=== PATIENT | female | born 1990 | race Caucasian/White ===

== ENCOUNTER → 2019-10-26 17:24 | Outpatient (CLI) | payer OTHER, SELFPAY ==
[2019-10-26 17:57] LABS: Basophils # 0.2 K/mm3 (0-0.2); Basophils % 2.6 % (0.1-2.0); Eosinophils # 0.1 K/mm3 (0.0-0.4); Eosinophils % 2.1 % (0.1-12.0); Hematocrit 42.8 % (37.0-47.0); Hemoglobin 14.1 g/dL (12.2-16.2); Lymphocytes # 1.7 K/mm3 (0.7-4.5); Lymphocytes % 27.7 % (10-50); Mean Corpuscular HGB Conc 32.9 g/dL (31.8-35.4); Mean Corpuscular Hemoglobin 29.5 pg (27.0-31.2); Mean Corpuscular Volume 89.9 fl (81-99); Mean Platelet Volume 7.4 fl (7.4-10.4); Monocytes # 0.3 K/mm3 (0.1-1.0); Monocytes % 5.3 % (1.7-9.3); Neutrophils # 3.8 K/mm3 (1.8-7.8); Neutrophils % 62.2 % (37.0-80.0); Platelet Count 305 K/mm3 (142-424); Red Blood Count 4.76 M/mm3 (4.20-5.40); Red Cell Distribution Width 13.3 % (11.5-17.5); White Blood Count 6.1 K/mm3 (4.8-10.8)
--- NOTE | 2019-10-26 18:13 | XR_ITS ---
PROCEDURE: XR CHEST AP CLINICAL HISTORY: SHORTNESS OF BREATH COMPARISON: No exams were available for comparison FINDINGS: Borderline cardiomegaly without failure. The lungs are clear without infiltrates, suspicious nodules, or pleural effusions. No acute bony abnormalities. IMPRESSION: Borderline cardiomegaly otherwise negative Dictated by: Mark Martinez MD 10/26/2019 19:41 Electronically signed by Mark Martinez MD in [place] 10/26/2019 19:41
[2019-10-29 07:46] LABS: Covid-19 Nasal PCR Sendout Lex Not Detected
--- NOTE | 2019-10-29 12:28 | PC.NURSE ---
pt notified of negative covid -19 test at this time. 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
== END ==
PROVIDERS: PCP Family Medicine; Visit Provider Family Medicine
DX: Z03.818 Encounter for observation for suspected exposure to other biological agents ruled out (principal)
CPT/HCPCS: 36415; 71045; 85025; U0004

== ENCOUNTER 2020-08-28 10:02 | Emergency (ER) | payer OTHER, SELFPAY ==
[2020-08-28 10:16] VITALS: BP 148/99; PULSE 89; RESP 14; TEMP 36.8; O2SAT 99; BMI 40.4
--- NOTE | 2020-08-28 10:23 | XR_ITS ---
PROCEDURE: XR TIBIA FIBULA RT 2V CLINICAL INDICATION: INJURY Pain COMPARISON: No exams were available for comparison FINDINGS: No fracture or dislocation. No lytic or blastic change. There is normal mineralization. The joint spaces are well-preserved. No significant degenerative/arthritic changes. No erosive changes evident. Other findings:None. IMPRESSION: No acute findings. Dictated by: Mark Martinez MD 08/28/2020 11:16 Mark Martinez MD in [place] 08/28/2020 11:16
--- NOTE | 2020-08-28 10:23 | XR_ITS ---
PROCEDURE: XR HIP RT 2-3V W/PELVIS CLINICAL INDICATION: INJURY Pain COMPARISON: No exams were available for comparison FINDINGS: No fracture or dislocation is evident. No significant degenerative change. No lytic or blastic change. Unremarkable soft tissues. IMPRESSION: No acute findings. Dictated by: Mark Martinez MD 08/28/2020 11:15 Mark Martinez MD in [facility] 08/28/2020 11:15
--- NOTE | 2020-08-28 10:23 | XR_ITS ---
PROCEDURE: XR ANKLE RT MIN 3V CLINICAL INDICATION: INJURY Pain COMPARISON: No exams were available for comparison FINDINGS: No fracture or dislocation. No lytic or blastic change. There is normal mineralization. The joint spaces are well-preserved. No significant degenerative/arthritic changes. No erosive changes evident. Other findings:None. IMPRESSION: No acute findings. Dictated by: Mark Martinez MD 08/28/2020 11:16 Makr Martinez MD in [place] 08/28/2020 11:16
--- NOTE | 2020-08-28 10:23 | XR_ITS ---
PROCEDURE: XR KNEE RT 3V CLINICAL INDICATION: INJURY Pain COMPARISON: No exams were available for comparison FINDINGS: No fracture or dislocation. No lytic or blastic change. There is normal mineralization. The joint spaces are well-preserved. No significant degenerative/arthritic changes. No erosive changes evident. Other findings:None. IMPRESSION: No acute findings. Dictated by: Mark Martinez MD 08/28/2020 11:15 Mark Martinez MD in [place] 08/28/2020 11:15
--- NOTE | 2020-08-28 11:27 | HMH.EDUTC ---
[facility] – [place] Disposition Clinical Impression: Right leg pain, Right hip pain Fall Qualifiers: Encounter type: initial encounter Qualified Code(s): W19.XXXA - Unspecified fall, initial encounter Right knee pain Qualifiers: Chronicity: acute Qualified Code(s): M25.561 - Pain in right knee Right ankle pain Qualifiers: Chronicity: acute Qualified Code(s): M25.571 - Pain in right ankle and joints of right foot Disposition: Home, Self-Care Condition on Discharge: Good Instructions: How to Use Crutches, DI for Knee Sprain, DI for Leg Pain, How to Use a Knee Immobilizer Additional Instructions: Rest the extremity, apply ice for 15 minutes as tolerated three or four times per day, Elevate the extremity as tolerated while you are resting. Take ibuprofen for pain. I sent in a prescription to your pharmacy. Follow up with Dr. Barney (orthopedics). Sometimes there can be fractures that don't show up well on the first set of x-rays. So, you should follow up. I put in a referral but you need to call his office and schedule an appointment. Follow up with your regular doctor. GO TO THE ER FOR ANY WORSENING SYMPTOMS Prescriptions: Ibuprofen [Ibuprofen 600mg Tablet] 600 mg PO Q6HP PRN #30 tab PRN Reason: Mild Pain Transmission Status: Received by [facility] Mupirocin [Bactroban 2% Ointment 22gm tube] 1 applicatio TP TID 7 Days #1 tube Transmission Status: Received by [facility] Referrals: Priscila Esparza MD [Primary Care Provider] - Samm Barney MD [Staff Physician] - Forms: Work/School Release Time of Disposition: 11:36 Medical Decision Making - Medical Records Medical records reviewed: No: I reviewed the patient's medical records. - Jh Inquiry Pt receiving controlled substance: No Vital Signs: 08/28/20 10:16 08/28/20 11:41 Temperature 98.3 F 98 F Temperature Source Oral Pulse Rate 85 Pulse Rate [Right] 89 Respiratory Rate 14 16 Blood Pressure 144/92 H Blood Pressure [Right Arm] 148/99 H Blood Pressure Mean [Right Arm] 115 Blood Pressure Source [Right Arm] Automatic Cuff Blood Pressure Position [Right Arm] Sitting 02 Sat by Pulse Oximetry 99 Oxygen Delivery Method Room Air - Radiology Data #1 Image(s): Hip Image Reviewed: Yes I reviewed the patient's radiology image, Yes I have reviewed radiologist's interpretation Preliminary Findings: Normal/NAD, No Fracture Seen PROCEDURE: XR HIP RT 2-3V W/PELVIS CLINICAL INDICATION: INJURY Pain COMPARISON: No exams were available for comparison FINDINGS: No fracture or dislocation is evident. No significant degenerative change. No lytic or blastic change. Unremarkable soft tissues. IMPRESSION: No acute findings. Dictated by: Mark Martinez MD 08/28/2020 11:15 Mark Martinez MD in [facility] 08/28/2020 11:15 #2 Image(s): Knee Image Reviewed: Yes I reviewed the patient's radiology image, Yes I have reviewed radiologist's interpretation Preliminary Findings: Normal/NAD PROCEDURE: XR KNEE RT 3V CLINICAL INDICATION: INJURY Pain COMPARISON: No exams were available for comparison FINDINGS: No fracture or dislocation. No lytic or blastic change. There is normal mineralization. The joint spaces are well-preserved. No significant degenerative/arthritic changes. No erosive changes evident. Other findings:None. IMPRESSION: No acute findings. Dictated by: Mark Martinez MD 08/28/2020 11:15 Mark Martinez MD in [place] 08/28/2020 11:15 #3 Image(s): Ankle Image Reviewed: Yes I reviewed the patient's radiology image, Yes I have reviewed radiologist's interpretation Preliminary Findings: Normal/NAD PROCEDURE: XR ANKLE RT MIN 3V CLINICAL INDICATION: INJURY Pain COMPARISON: No exams were available for comparison FINDINGS: No fracture or dislocation. No lytic or blastic change. There is normal mineralization. The joint spaces are well-preserved. No significant de
[2020-08-28 11:41] VITALS: BP 144/92; PULSE 85; RESP 16; TEMP 36.6
== END 2020-08-28 11:53 | disposition home or self-care (01) ==
PROVIDERS: Emergency Provider Nurse Practitioner Family; PCP Family Medicine
DX: M25.561 Pain in right knee (principal); M25.571 Pain in right ankle and joints of right foot; M25.551 Pain in right hip; W17.2XXA Fall into hole, initial encounter; Y99.0 Civilian activity done for income or pay; Y92.69 Other specified industrial and construction area as the place of occurrence of the external cause
CPT/HCPCS: 29505; 73502; 73562; 73590; 73610; 99202; G0463

== ENCOUNTER → 2020-10-16 13:59 | Outpatient (CLI) | payer OTHER, SELFPAY ==
--- NOTE | 2020-10-16 13:59 | MR_ITS ---
PROCEDURE: MR KNEE RT WO CON CLINICAL INDICATION: Knee pain COMPARISON: CR XR KNEE RT 3V from 08/28/2020 TECHNIQUE: Routine multiplanar multi echo sequences are performed without gadolinium enhancement. FINDINGS: There is a small focal horizontal tear of the anterior horn of the medial meniscus. The lateral meniscus is intact. The ACL and PCL are intact. The MCL is intact. The L lateral collateral ligament complex appears intact. There is T2 and STIR hyperintensity noted on the superficial soft tissues adjacent to the iliotibial band through its entire visualized extent. The articular cartilage in the medial, lateral and patellofemoral compartments are unremarkable. The extensor mechanism is within normal limits. The popliteus tendon and the posterolateral corner structures are unremarkable. Small joint effusion is noted. Bone marrow signal intensity is within normal limits without evidence of marrow infiltrative process. Prepatellar and infrapatellar soft tissues demonstrate no significant soft tissue abnormality. IMPRESSION: Focal horizontal tear of the anterior horn of the medial meniscus. Edema with small amount of fluid noted in the super special soft tissues adjacent to the visualized iliotibial band. Iliotibial band syndrome should be considered. Small joint effusion. Dictated by: Rima Barney 10/17/2020 10:57 Rima Barney in [place] 10/17/2020 10:57
== END ==
PROVIDERS: PCP Family Medicine; Visit Provider Orthopaedic Surgery
DX: S89.91XA Unspecified injury of right lower leg, initial encounter (principal)
CPT/HCPCS: 73721

== ENCOUNTER → 2021-02-13 10:37 | Outpatient (CLI) | payer OTHER, SELFPAY ==
[2021-02-13 11:36] LABS: Chloride 105 mmol/L (98-107); Potassium 4.2 mmoL/L (3.5-5.1); Sodium 138 mmol/L (136-145)
[2021-02-13 11:38] LABS: Alanine Aminotransferase 40 U/L (12-78); Alkaline Phosphatase 78 U/L (38-126); Aspartate Amino Transferase 27 U/L (14-36); Bilirubin,Total 0.5 mg/dl (0.2-1.3); Blood Urea Nitrogen 9 mg/dl (7-17); Estimated Glomerular Filt Rate 118 ml/min (>60); GFR (African American) 143 ML/MIN (>60)
[2021-02-13 11:39] LABS: Albumin Level 3.8 g/dl (3.5-5.0); Albumin/Globulin Ratio 1.4 (1.1-1.8); Anion Gap 12.2 mEq/L (5-15); Calcium 8.8 mg/dl (8.4-10.2); Carbon Dioxide 25 mmol/L (22.0-30.0); Chol/HDL Ratio 5.4 (1-3.5); Cholesterol 188 mg/dl (140-200); Globulin 2.8 g/dL (1.3-3.2); Glucose 99 mg/dl (74-100); HDL Cholesterol 35 mg/dl (40-60); Total Protein,Serum 6.6 g/dl (6.3-8.2); Triglycerides 125 mg/dl (30-150); VLDL Cholesterol 25 mg/dL (0-40)
[2021-02-13 11:50] LABS: Direct LDL Cholesterol 131.23 mg/dL (100-129)
== END ==
PROVIDERS: Visit Provider Family Medicine
DX: I10 Essential (primary) hypertension (principal)
CPT/HCPCS: 36415; 80053; 80061

== ENCOUNTER → 2021-06-10 14:25 | Outpatient (CLI) | payer OTHER, SELFPAY ==
--- NOTE | 2021-06-10 14:30 | MM_ITS ---
PROCEDURE INFORMATION: Exam: US Left Breast, Complete MG Left Diagnostic Breast Tomosynthesis Exam date and time: 06/10/2021 2:30 PM Age: 31 years old Clinical indication: Palpable abnormality in the left breast TECHNIQUE: Imaging protocol: Complete ultrasound of all four quadrants of the Left breast and the retroareolar regions, including ultrasound of the axilla when performed. Left Diagnostic tomosynthesis and 2D mammography including computer-aided detection (CAD) when performed. Unilateral or bilateral exam. COMPARISON: No relevant prior studies available. FINDINGS: MAMMOGRAPHY: The breast tissue is composed of scattered areas of fibroglandular density. A skin marker was placed over the palpable abnormality in the left lateral breast. The spot compression views demonstrate normal overlapping fibroglandular structures. There is no stellate mass, architectural distortion or suspicious microcalcifications in either breast to suggest malignancy. No skin thickening or axillary adenopathy. ULTRASOUND: Sonographic images of the left breast including the retroareolar region, all 4 quadrants and the axilla do not demonstrate any solid or cystic masses. No architectural distortion or acoustical shadowing. Focal increased echogenicity in the immediate left retroareolar region extending to the overlying skin likely represents a small inclusion cyst or subcentimeter lipoma. No skin thickening or axillary adenopathy. IMPRESSION: Palpable abnormality in the left lateral breast corresponds both mammographically and sonographically to normal fibroglandular structures. Additional questionable palpable abnormality in the immediate left retroareolar region corresponds sonographically to echogenic tissue likely representing an inclusion cyst. There is no mammographic evidence of malignancy. Further evaluation of a palpable abnormality should be based on clinical grounds regardless of radiographic findings or lack thereof. ASSESSMENT: BI-RADS Category 2: Benign
== END ==
PROVIDERS: PCP Family Medicine; Visit Provider Family Medicine
DX: N63.20 Unspecified lump in the left breast, unspecified quadrant (principal)
CPT/HCPCS: 76641; 77062; 77066; G0279

== ENCOUNTER → 2021-06-24 12:17 | Outpatient (CLI) | payer OTHER, SELFPAY | PROVIDERS: PCP Psychiatry & Neurology Sleep Medicine; Visit Provider Nurse Practitioner | DX: U07.1 COVID-19 (principal) | CPT/HCPCS: C9803; U0003; U0005 ==

== ENCOUNTER 2021-08-31 14:38 | Emergency (ER) | payer OTHER, SELFPAY ==
[2021-08-31 15:06] VITALS: BP 140/79; PULSE 107; RESP 16; TEMP 36.8; O2SAT 99; BMI 43.4
--- NOTE | 2021-08-31 15:12 | HMH.EDUTC ---
[facility] [place] Clinical Impression: Pharyngitis Qualifiers: Pharyngitis/tonsillitis etiology: other specified organisms Qualified Code(s): J02.8 - Acute pharyngitis due to other specified organisms Sinusitis Qualifiers: Sinusitis location: unspecified location Chronicity: acute Recurrence: non-recurrent Qualified Code(s): J01.90 - Acute sinusitis, unspecified Disposition: Home, Self-Care Condition on Discharge: Good Instructions: DI for Sinusitis Additional Instructions: Drink plenty of fluids. Take tylenol or ibuprofen for pain or fever. Take the medications as directed. Follow up with your regular doctor. GO TO THE ER FOR ANY WORSENING SYMPTOMS Prescriptions: Ondansetron [Zofran 4mg ODT] 4 mg PO Q8HP PRN #12 tab PRN Reason: Nausea Transmission Status: [facility] Benzonatate [Benzonatate 100mg cap] 100 mg PO TIDP PRN #30 cap PRN Reason: Cough Transmission Status: Pending to [facility] Azithromycin [Z-Natanael 250mg Tab*] 250 mg PO UD DOSE PK #6 tab Transmission Status: Pending to [facility] Referrals: Priscila Esparza MD [Primary Care Provider] - Forms: Work/School Release Time of Disposition: 15:40 Medical Decision Making - Medical Records Medical records reviewed: No: I reviewed the patient's medical records. - Jh Inquiry Pt receiving controlled substance: No Vital Signs: 08/31/21 15:06 Temperature 98.2 F Temperature Source Oral Pulse Rate [Left] 107 H Respiratory Rate 16 Blood Pressure [Right Arm] 140/79 Blood Pressure Mean [Right Arm] 99 02 Sat by Pulse Oximetry 99 - Lab Data Lab results reviewed: Yes: I reviewed the patient's lab results. Orders (Tests/Meds): ORDERS Category Date Time Status Rapid Strep Scrn Group A [Strep Scrn Group A (Rapid)] Lab 08/31/21 15:06 Ordered Stat [facility] [place] - General Stated complaint: loss of voice, cough, congestion Time Seen by Provider: 08/31/21 15:12 Mode of Arrival: Ambulatory Source of Information: Patient Limitations: No Limitations Description of Symptoms (Recalled from Triage Doc. by RN): pt c/o a cough, hoarseness, MARTINI and nasal drainage. HEENT Symptoms (Recalled from RN notes): Yes Resp Symptoms (Recalled from RN notes): Yes Skin Symptoms (Recalled from RN notes): No MS Symptoms (Recalled from RN notes): No Functional Status (Recalled from RN notes): wnl - History of Present Illness Provider Complaint: She states that for the past 2 days she has had a sore throat, sinus congestion and a cough. - Related Data Home Medications Medication Instructions Recorded Confirmed levonorgestrel 20 mcg/24 hours (7 INTRAUTERI each 02/22/19 08/19/21 yrs) 52 mg intrauterine device lisinopril 10 mg tablet 10 mg PO DAILY 01/18/20 08/19/21 Previous Rx's Medication Instructions Recorded Azithromycin [Z-Natanael 250mg Tab*] 250 mg PO UD DOSE PK #6 tab 08/31/21 Benzonatate [Benzonatate 100mg 100 mg PO TIDP PRN #30 cap 08/31/21 cap] Ondansetron [Zofran 4mg ODT] 4 mg PO Q8HP PRN #12 tab 08/31/21 Allergies Allergy/AdvReac Type Severity Reaction Status Date / Time codeine [CODEINE] Allergy Mild NA-NAUSEA/V Verified 08/19/21 14:55 OMITING - Worker's Comp Is this a Worker's Comp case?: No [facility] History - Hepatitis A Screen Drug use history?: No High risk sexual behaviors?: No History of sexually transmitted infection?: No Currently employed?: No Childcare worker?: No Do you have indoor plumbing?: Yes Do you have electricity?: Yes Attestation statement:: This patient has been screened for Hepatitis A risk factors. I have reviewed the patient's past medical history: Yes Medical History: Reports:: Hypertension Denies:: Cancer, Diabetes Mellitus Type 1, Diabetes Mellitus Type 2, Internal Pacemaker, MRSA, Seizures Other Medical History: Denies: Blood Transfusion Reaction Comment: none Laterality Cases: Bilateral: Myringotomy (Ear Tub
[2021-08-31 15:48] VITALS: BP 140/79; PULSE 107; RESP 16; TEMP 36.8
[2021-08-31 16:52] LABS: Strep Scrn Group A (Rapid) Negative (Negative)
== END 2021-08-31 15:49 | disposition home or self-care (01) ==
PROVIDERS: Emergency Provider Nurse Practitioner Family; PCP Family Medicine
DX: J01.90 Acute sinusitis, unspecified (principal); J02.8 Acute pharyngitis due to other specified organisms; I10 Essential (primary) hypertension
CPT/HCPCS: 87430; 99212; G0463

== ENCOUNTER 2022-01-11 12:34 | Emergency (ER) | payer OTHER, SELFPAY ==
[2022-01-11] VITALS (10 sets, daily range): BP systolic 101–167; BP diastolic 60–87; PULSE 77–102; RESP 16–22; TEMP 36.6–36.8; O2SAT 98–100; BMI 42.0
--- NOTE | 2022-01-11 12:34 | ECG_ITS ---
APPROVED REPORT Exam: Resting ECG HR:96 bpm ECG Measurements Heart Rate 96 AXES VT 162 P 41 QRSd 91 QRS 30 QT 347 T 25 QTc 401 Conclusion SINUS RHYTHM NORMAL ECG UNCONFIRMED REPORT Electronically signed by : Jain Norman MD 01/12/2022 09:10:17
--- NOTE | 2022-01-11 12:42 | XR_ITS ---
PROCEDURE INFORMATION: Exam: XR Chest Exam date and time: 01/11/2022 1:27 PM Age: 31 years old Clinical indication: Pain; Angina pectoris; Additional info: Chest pain TECHNIQUE: Imaging protocol: Radiologic exam of the chest. Views: 1 view. COMPARISON: CT ANGIO CHEST PE PROTOCOL 01/11/2022 1:19 PM FINDINGS: Lungs: Unremarkable. No consolidation. Pleural spaces: Unremarkable. No pleural effusion. No pneumothorax. Heart/Mediastinum: Unremarkable. No cardiomegaly. Bones/joints: Unremarkable. IMPRESSION: No acute findings.
--- NOTE | 2022-01-11 12:43 | PC.NURSE ---
IFEANYI established and sent to the lab
--- NOTE | 2022-01-11 12:51 | HMH.EDGENADL ---
ED Disposition Clinical Impression: Atypical chest pain Disposition: Home, Self-Care Condition on Discharge: Good Instructions: DI for Atypical Chest Pain Additional Instructions: Additional instructions for CHEST PAIN: See your physician as soon as possible for further evaluation. Return immediately if worsening chest pain, vomiting, shortness of breath, fever, coughing of blood. Referrals: Priscila Esparza MD [Primary Care Provider] - - Critical Care Critical Care Time: No Attestation: On 01/11/22, the high probability of a clinically significant, sudden or life threatening deterioration of the following system(s) required my full and direct attention, intervention and personal management. The time I documented below is in addition to time spent performing reported procedures but includes the following listed in this critical care notation. Medical Decision Making - Jh Inquiry Pt receiving controlled substance: No Vital Signs: 01/11/22 12:37 01/11/22 13:05 01/11/22 13:37 Temperature 98.2 F Temperature Source Oral Pulse Rate 77 84 Pulse Rate [Radial] 102 H Respiratory Rate 16 21 17 Blood Pressure 101/74 L 136/75 Blood Pressure [Right Arm] 167/76 H Blood Pressure Mean 83 85 Blood Pressure Mean [Right Arm] 106 Blood Pressure Position Blood Pressure Position [Right Arm] Sitting 02 Sat by Pulse Oximetry 98 100 98 Oxygen Delivery Method Room Air Room Air Room Air 01/11/22 14:31 01/11/22 14:32 01/11/22 14:35 Temperature Temperature Source Pulse Rate 87 77 83 Pulse Rate [Radial] Respiratory Rate 22 21 Blood Pressure 123/73 123/73 114/70 Blood Pressure [Right Arm] Blood Pressure Mean 81 79 Blood Pressure Mean [Right Arm] Blood Pressure Position Sitting Blood Pressure Position [Right Arm] 02 Sat by Pulse Oximetry 100 100 99 Oxygen Delivery Method Room Air Room Air Room Air 01/11/22 15:05 01/11/22 15:35 01/11/22 16:20 Temperature Temperature Source Pulse Rate 83 81 86 Pulse Rate [Radial] Respiratory Rate 17 16 16 Blood Pressure 109/69 L 103/60 L 103/64 L Blood Pressure [Right Arm] Blood Pressure Mean 77 72 74 Blood Pressure Mean [Right Arm] Blood Pressure Position Blood Pressure Position [Right Arm] 02 Sat by Pulse Oximetry 99 100 100 Oxygen Delivery Method Room Air Room Air Room Air - Lab Data Lab Results 01/11/22 12:40: WBC 12.1 H, RBC 4.54, Hgb 13.5, Hct 41.8, MCV 92.0, MCH 29.7, MCHC 32.3, RDW 13.1, Plt Count 341, MPV 7.7, Neut % (Auto) 69.5, Lymph % (Auto) 23.1, [place] % (Auto) 5.4, Eos % (Auto) 1.1, Baso % (Auto) 0.9, Neut # (Auto) 8.4 H, Lymph # (Auto) 2.8, [place] # (Auto) 0.7, Eos # (Auto) 0.1, Baso # (Auto) 0.1 01/11/22 12:40: Sodium 139, Potassium 3.6, Chloride 105, Carbon Dioxide 27, Anion Gap 10.6, BUN 8, Creatinine 0.60, Estimated Creat Clear 98, Estimated GFR 117, Est GFR ( Amer) 142, Glucose 85, Calcium 9.1, Total Bilirubin 0.2, AST 36, ALT 75, Alkaline Phosphatase 98, Troponin I < 0.01, Total Protein 7.6, Albumin 4.3, Globulin 3.3 H, Albumin/Globulin Ratio 1.3 01/11/22 12:40: Serum HCG, Qual Negative 01/11/22 12:40: D-Dimer 0.54 H 01/11/22 14:03: SARS-CoV-2 (PCR) Not detected, Influenza A Untype (PCR) Not detected, Influenza Type B (PCR) Not detected 01/11/22 15:50: Troponin I < 0.01 Result diagrams: 01/11/22 12:40 01/11/22 12:40 Orders (Tests/Meds): ED MEDICATIONS Discontinued Medications Generic Name Dose Route Start Last Admin Trade Name Freq PRN Reason Stop Dose Admin Iopamidol 75 ml 01/11/22 13:29 Iopamidol-370 (76%);100ml Bottle IV 01/11/22 13:30 ONCE ONE Ketorolac Tromethamine 30 mg 01/11/22 14:33 01/11/22 14:34 Ketorolac 30mg/Ml Vial IV 01/11/22 14:34 30 mg ONCE ONE Administration Sodium Chloride 50 ml 01/11/22 13:29 0.9 % Sodium Chloride 50 Ml Vial IV 08/06/22 13:30 ONCE ONE Sodium Chloride 10 ml 01/11/22 13:29 Sodium Chloride 0.9% 10ml
--- NOTE | 2022-01-11 12:53 | PC.NURSE ---
Rounded on patient asked if she needed anything. She did not call light within reach
[2022-01-11 12:55] LABS: Basophils # 0.1 K/mm3 (0-0.2); Basophils % 0.9 % (0.1-2.0); Eosinophils # 0.1 K/mm3 (0.0-0.4); Eosinophils % 1.1 % (0.1-12.0); Hematocrit 41.8 % (37.0-47.0); Hemoglobin 13.5 g/dL (12.2-16.2); Lymphocytes # 2.8 K/mm3 (0.7-4.5); Lymphocytes % 23.1 % (10-50); Mean Corpuscular HGB Conc 32.3 g/dL (31.8-35.4); Mean Corpuscular Hemoglobin 29.7 pg (27.0-31.2); Mean Platelet Volume 7.7 fl (7.4-10.4); Monocytes # 0.7 K/mm3 (0.1-1.0); Monocytes % 5.4 % (1.7-9.3); Neutrophils # 8.4 K/mm3 (1.8-7.8); Neutrophils % 69.5 % (37.0-80.0); Platelet Count 341 K/mm3 (142-424); Red Blood Count 4.54 M/mm3 (4.20-5.40); Red Cell Distribution Width 13.1 % (11.5-17.5); White Blood Count 12.1 K/mm3 (4.8-10.8)
[2022-01-11 12:58] LABS: Alanine Aminotransferase 75 U/L (12-78); Albumin Level 4.3 g/dl (3.5-5.0); Albumin/Globulin Ratio 1.3 (1.1-1.8); Alkaline Phosphatase 98 U/L (38-126); Anion Gap 10.6 mEq/L (5-15); Aspartate Amino Transferase 36 U/L (14-36); Bilirubin,Total 0.2 mg/dl (0.2-1.3); Blood Urea Nitrogen 8 mg/dl (7-17); Calcium 9.1 mg/dl (8.4-10.2); Carbon Dioxide 27 mmol/L (22.0-30.0); Chloride 105 mmol/L (98-107); Creatinine Clearance Estimated 98 mL/min (50-200); Estimated Glomerular Filt Rate 117 ml/min (>60); GFR (African American) 142 ML/MIN (>60); Globulin 3.3 g/dL (1.3-3.2); Glucose 85 mg/dl (74-100); Potassium 3.6 mmoL/L (3.5-5.1); Sodium 139 mmol/L (136-145); Total Protein,Serum 7.6 g/dl (6.3-8.2)
[2022-01-11 13:03] LABS: D-Dimer 0.54 ug/mL (0.0-0.5)
--- NOTE | 2022-01-11 13:11 | CT_ITS ---
PROCEDURE INFORMATION: Exam: CTA Chest With Contrast Exam date and time: 01/11/2022 1:19 PM Age: 31 years old Clinical indication: Angina; Additional info: Cp, d-dimer above cutoff TECHNIQUE: Imaging protocol: Computed tomographic angiography of the chest with contrast. 3D rendering (Not supervised by radiologist): MIP and/or 3D reconstructed images were created by the technologist. Radiation optimization: All CT scans at this facility use at least one of these dose optimization techniques: automated exposure control; mA and/or kV adjustment per patient size (includes targeted exams where dose is matched to clinical indication); or iterative reconstruction. Contrast material: ISOVUE; Contrast volume: 75 ml; Contrast route: INTRAVENOUS (IV); COMPARISON: CR XR CHEST AP 10/26/2019 6:28 PM FINDINGS: Pulmonary arteries: No evidence of pulmonary embolus. Aorta: Unremarkable. No aortic aneurysm. No aortic dissection. Lungs: Calcified granuloma right lung base. Mild ground-glass regions of opacification demonstrated bilaterally. Pleural spaces: Unremarkable. No pneumothorax. No pleural effusion. Heart: Unremarkable. No cardiomegaly. No pericardial effusion. Lymph nodes: Nonspecific mediastinal adenopathy measuring up to 13 mm in the subcarinal space. Diaphragm: Eventration of the right hemidiaphragm. Liver: Hepatic steatosis. Hepatomegaly. Bones/joints: Unremarkable. No acute fracture. Soft tissues: Unremarkable. IMPRESSION: 1. No evidence of pulmonary embolus. 2. No evidence of acute abnormality. 3. Mild ground-glass regions of opacification. Findings nonspecific. Findings may reflect interstitial lung disease. 4. Hepatic steatosis. Hepatomegaly.
[2022-01-11 13:12] LABS: Troponin I < 0.01 ng/ml (0.00-0.034)
[2022-01-11 13:14] LABS: HCG Qualitative, Serum Negative (Negative)
--- NOTE | 2022-01-11 14:03 | PC.NURSE ---
tech Myah to obtain COVID SWAB
[2022-01-11 14:09] LABS: Coronavirus 19, PCR Not Detected (NotDetected); Influenza A, PCR Not Detected (NotDetected); Influenza B, PCR Not Detected (NotDetected)
--- NOTE | 2022-01-11 15:04 | PC.NURSE ---
pt given pepsi and ice
--- NOTE | 2022-01-11 16:15 | PC.NURSE ---
pt updated on plan. call light within reach
--- NOTE | 2022-01-11 16:42 | PC.NURSE ---
pt up ambulatory to bathroom steady gait
[2022-01-11 16:51] LABS: Troponin I < 0.01 ng/ml (0.00-0.034)
== END 2022-01-11 19:11 | disposition home or self-care (01) ==
PROVIDERS: Emergency Provider Emergency Medicine; PCP Family Medicine
DX: R07.2 Precordial pain (principal); I20.9 Angina pectoris, unspecified; R06.02 Shortness of breath; M25.511 Pain in right shoulder; R79.1 Abnormal coagulation profile; K76.0 Fatty (change of) liver, not elsewhere classified; F17.210 Nicotine dependence, cigarettes, uncomplicated; Z88.5 Allergy status to narcotic agent; Z88.8 Allergy status to other drugs, medicaments and biological substances; Z20.822 Contact with and (suspected) exposure to COVID-19
CPT/HCPCS: 36415; 71045; 71275; 80053; 84484; 84703; 85025; 85378; 93005; 96374; 99285; C9803; U0003; U0005

== ENCOUNTER 2022-07-14 15:37 | Emergency (ER) | payer OTHER, SELFPAY ==
[2022-07-14 16:00] VITALS: BP 140/67; PULSE 102; RESP 20; TEMP 36.9; O2SAT 100; BMI 42.5
--- NOTE | 2022-07-14 16:03 | EXP.UTC ---
Discharge Plan Disposition Patient Disposition: Home, Self-Care Condition: Good Prescriptions Prescriptions: New ondansetron 4 mg Tablet,Disintegrating 4 mg PO Q8H PRN (Reason: Nausea) Qty: 20 0RF No Action lisinopril 10 mg tablet 10 mg PO DAILY omeprazole 40 mg capsule,delayed release(DR/EC) 40 mg PO DAILY Label Comments: TAKE 1 CAPSULE BY MOUTH ONCE DAILY dicyclomine 10 mg capsule 10 mg PO ONCE spironolactone 100 mg tablet 100 mg PO DAILY Lo Loestrin Fe 1 mg-10 mcg (24)/10 mcg (2) tablet 1 tab PO DAILY Referrals Follow up/Referrals: Priscila Esparza MD [Primary Care Provider] - See instructions Activity Restrictions/Add. Instructions Additional Instructions/Restrictions: Drink plenty of fluids. Take tylenol or ibuprofen for pain or fever. Take the medications as directed. Follow up with your regular doctor. GO TO THE ER FOR ANY WORSENING SYMPTOMS Clinical Impressions Clinical Impression: Gastroenteritis Stand Alone Forms Stand Alone Forms: Work/School Release Instructions Patient Instructions: DI for Viral Gastroenteritis -- Adult Discharge ED Provider: Remigio French [facility] General Stated complaint: Stomach ache, Vomitting Time Seen by Provider: 07/14/22 16:03 History of Present Illness Provider Complaint: She states that since yesterday she has had n/v/d. Her daughter currently has norovirus. She denies any abdominal pain. Related Data Home Medications Medication Instructions Recorded Confirmed lisinopril 10 mg tablet 10 mg PO DAILY . 01/18/20 07/14/22 dicyclomine 10 mg capsule 10 mg PO ONCE . 06/19/22 07/14/22 omeprazole 40 mg capsule,delayed 40 mg PO DAILY . 06/19/22 07/14/22 release norethindrone 1 mg-ethinyl 1 tab PO DAILY control 07/14/22 07/14/22 estradiol 10 mcg (24)-iron 10 mcg(2) tablet (Lo Loestrin Fe) spironolactone 100 mg tablet 100 mg PO DAILY . 07/14/22 07/14/22 Previous Rx's Medication Instructions Recorded ondansetron 4 mg disintegrating 4 mg PO Q8H PRN Nausea #20 tabs 07/14/22 tablet Allergies Allergy/AdvReac Type Severity Reaction Status Date / Time codeine [CODEINE] Allergy Mild NA-NAUSEA/V Verified 07/14/22 16:45 OMITING PFSH PFSH Disclaimer: The information contained in this section may have been updated after the patient was seen, as this information can be updated by other users. Medical History delivery delivered History of deviated nasal septum Surgical History History of cholecystectomy History of placement of ear tubes History of tonsillectomy and adenoidectomy Social History Smoking Status: Current every day smoker tobacco type: cigarettes packs per day: 1 alcohol intake: never substance use type: denies use current occupational status: employed Travel in the last 8 weeks: None household members: spouse and children housing: house current occupational exposures/hazards: No caffeine: Yes ROS Obtained: Yes All systems reviewed & no additional complaints except as documented Constitutional Constitutional: Reports chills and Denies fever(s) Eyes Eyes: Denies eye discharge ENT Ears, Nose, Mouth, and Throat: Denies sore throat Cardiovascular Cardiovascular: Denies chest pain Respiratory Respiratory: Denies chest congestion and Reports cough Gastrointestinal Gastrointestingal: Reports cramping, diarrhea, nausea and vomiting; Denies abdominal pain or constipation Musculoskeletal Musculoskeletal: Denies arthralgias Integumentary/Breasts Skin/Breast: Denies rash Neurologic Neurologic: Denies paresthesias Physical Exam General General appearance: alert and in no apparent distress Head Head exam: atraumatic and normocephalic Eye Eye exam: Present normal appearance, PER
[2022-07-14 17:00] VITALS: BP 140/67; PULSE 102; RESP 20; TEMP 36.9; O2SAT 100
== END 2022-07-14 17:11 | disposition home or self-care (01) ==
PROVIDERS: Emergency Provider Nurse Practitioner Family; PCP Family Medicine
DX: K52.9 Noninfective gastroenteritis and colitis, unspecified (principal)
CPT/HCPCS: 99212; 99213; G0463

== ENCOUNTER 2023-02-01 08:32 | Emergency (ER) | payer OTHER, SELFPAY ==
[2023-02-01 08:33] VITALS: BP 162/102; PULSE 112; RESP 20; TEMP 36.9; O2SAT 97; BMI 42.0
--- NOTE | 2023-02-01 08:48 | EXP.UTC ---
Discharge Plan Disposition Patient Disposition: Home, Self-Care Condition: Good Prescriptions Prescriptions: New azithromycin [Zithromax] 250 mg tablet 250 mg PO UD DOSE PK Qty: 6 0RF Rx Instructions: Take two (2) tablets today, then one (1) tablet days #2 thru #5 methylprednisolone 4 mg Tablets,Dose Pack 4 mg PO DIRECTED Qty: 21 0RF cimrkokdxooufii-pwjhujeis-MR [Bromfed DM] 2-30-10 mg/5 mL Syrup 5 ml PO Q6H PRN (Reason: Cough) Qty: 240 0RF No Action lisinopril 10 mg tablet 10 mg PO DAILY omeprazole 40 mg capsule,delayed release(DR/EC) 40 mg PO DAILY Patient Comments: TAKE 1 CAPSULE BY MOUTH ONCE DAILY dicyclomine 10 mg capsule 10 mg PO ONCE norethindrone ac-eth estradiol [Loestrin 06/27 ()] 1-20 mg-mcg tablet 1 tab PO DAILY Qty: 63 4RF Referrals Follow up/Referrals: Priscila Esparza MD [Primary Care Provider] - See instructions Activity Restrictions/Add. Instructions Additional Instructions/Restrictions: Drink plenty of fluids. Take tylenol or ibuprofen for pain or fever. Take the medications as directed. Follow up with your regular doctor. GO TO THE ER FOR ANY WORSENING SYMPTOMS Clinical Impressions Clinical Impression: Sinusitis, Acute viral syndrome Stand Alone Forms Stand Alone Forms: Work/School Release Instructions Patient Instructions: Sinusitis, DI for Sinusitis, Coronavirus Disease 2019 Discharge ED Provider: Remigio French [facility] [place] HPI General Stated complaint: congestion and body aches Time Seen by Provider: 02/01/23 08:47 History of Present Illness Provider Complaint: She states that for the past 3 days she has had body aches, chills, low grade fever, malaise, sore throat, sinus congestion and a cough. Related Data Home Medications Medication Instructions Recorded Confirmed lisinopril 10 mg tablet 10 mg PO DAILY . 01/18/20 11/18/22 dicyclomine 10 mg capsule 10 mg PO ONCE . 06/19/22 11/18/22 omeprazole 40 mg capsule,delayed 40 mg PO DAILY . 06/19/22 11/18/22 release Previous Rx's Medication Instructions Recorded norethindrone acetate 1 mg-ethinyl 1 tab PO DAILY #63 tabs 11/18/22 estradiol 20 mcg tablet (Loestrin) azithromycin 250 mg tablet 250 mg PO UD DOSE PK #6 tabs 02/01/23 (Zithromax) lbzqribdfpcbfhm-cwgbsgifjimmulb-QF 5 ml PO Q6H PRN Cough #240 mL 02/01/23 2 mg-30 mg-10 mg/5 mL oral syrup (Bromfed DM) methylprednisolone 4 mg tablets in 4 mg PO DIRECTED #21 tabs 02/01/23 a dose pack Allergies Allergy/AdvReac Type Severity Reaction Status Date / Time codeine [CODEINE] Allergy Mild NA-NAUSEA/V Verified 11/18/22 11:29 OMITING PFSH PFSH Disclaimer: The information contained in this section may have been updated after the patient was seen, as this information can be updated by other users. Medical History delivery delivered History of deviated nasal septum Surgical History History of cholecystectomy History of placement of ear tubes History of tonsillectomy and adenoidectomy Social History Smoking Status: Current every day smoker tobacco type: cigarettes packs per day: 1 alcohol intake: never substance use type: denies use current occupational status: employed Travel in the last 8 weeks: None household members: spouse and children housing: house current occupational exposures/hazards: No caffeine: Yes ROS Obtained: Yes All systems reviewed & no additional complaints except as documented Constitutional Constitutional: Reports poor appetite Eyes Eyes: Reports system reviewed and no additional complaints, except as documented ENT Ears, Nose, Mouth, and Throat: Reports as per HPI Cardiovascular Cardiovascular: Reports system reviewed and no additional complaints, except as documente
[2023-02-01 09:44] VITALS: BP 162/102; PULSE 112; RESP 20; TEMP 36.9; O2SAT 97
== END 2023-02-01 09:46 | disposition home or self-care (01) ==
PROVIDERS: Emergency Provider Nurse Practitioner Family; PCP Family Medicine
DX: U07.1 COVID-19 (principal); J01.90 Acute sinusitis, unspecified; R50.9 Fever, unspecified; R53.81 Other malaise; F17.210 Nicotine dependence, cigarettes, uncomplicated
CPT/HCPCS: 99212; 99214; G0463

== ENCOUNTER 2023-08-11 13:19 | Outpatient (CLI) | payer OTHER, SELFPAY ==
[2023-08-11 13:31] LABS: Adenovirus F 40/41, stool Not Detected (NotDetected); Astrovirus Not Detected (NotDetected); Campylobacter Not Detected (NotDetected); Clostridium Difficile A/B, PCR Not Detected (NotDetected); Cryptosporidium Not Detected (NotDetected); Cyclospora Cayetanesis Not Detected (NotDetected); Entamoeba histolytica Not Detected (NotDetected); Enteroaggregative E coli Not Detected (NotDetected); Enteropathogenic E coli Not Detected (NotDetected); Enterotoxigenic E coli Not Detected (NotDetected); Giardia lamblia Not Detected (NotDetected); Norovirus Not Detected (NotDetected); Plesimonas Shigalloides, PCR Not Detected (NotDetected); Rotavirus A Not Detected (NotDetected); Salmonella, PCR Not Detected (NotDetected); Sapovirus Not Detected (NotDetected); Shiga-like toxin E coli Not Detected (NotDetected); Shigella Enterovasive E coli Not Detected (NotDetected); Vibrio Cholerae Not Detected (NotDetected); Vibrio, PCR Not Detected (NotDetected); Yersinia Entercolitica, PCR Not Detected (NotDetected)
[2023-08-12 14:43] LABS: H. pylori Stool Ag, EIA Negative (Negative)
[2023-08-15 00:08] LABS: Pancreatic Elastase, Fecal >500 (>200)
== END 2023-08-11 23:59 ==
PROVIDERS: PCP Family Medicine; Visit Provider Nurse Practitioner Family
DX: K52.9 Noninfective gastroenteritis and colitis, unspecified (principal)
CPT/HCPCS: 82656; 87338; 87507

== ENCOUNTER 2023-12-05 19:20 | Emergency (ER) | payer OTHER, SELFPAY ==
[2023-12-05 19:21] VITALS: BP 161/90; PULSE 115; RESP 18; TEMP 36.6; O2SAT 97; BMI 42.0
--- NOTE | 2023-12-05 19:30 | EXP.UTC ---
Discharge Plan Disposition Patient Disposition: Home, Self-Care Condition: Good Prescriptions Prescriptions: New amoxicillin 500 mg tablet 500 mg PO TID 10 Days Qty: 30 0RF No Action lisinopril 10 mg tablet 10 mg PO DAILY omeprazole 40 mg capsule,delayed release(DR/EC) 40 mg PO DAILY Patient Comments: TAKE 1 CAPSULE BY MOUTH ONCE DAILY dicyclomine 10 mg capsule 10 mg PO ONCE norethindrone ac-eth estradiol [Microgestin 06/27 ()] 1-20 mg-mcg tablet See Rx Instructions .ROUTE .COMPLEX Qty: 63 0RF Dose Instruction: Take 1 tablet by mouth once daily Rx Instructions: Take 1 tablet by mouth once daily azithromycin [Zithromax] 250 mg tablet 250 mg PO UD DOSE PK Qty: 6 0RF Rx Instructions: Take two (2) tablets today, then one (1) tablet days #2 thru #5 methylprednisolone 4 mg Tablets,Dose Pack 4 mg PO DIRECTED Qty: 21 0RF ewimzxzdkkgtebk-xpbhqtfmh-SM [Bromfed DM] 2-30-10 mg/5 mL Syrup 5 ml PO Q6H PRN (Reason: Cough) Qty: 240 0RF Referrals Follow up/Referrals: Priscila Esparza MD [Primary Care Provider] - See instructions Activity Restrictions/Add. Instructions Additional Instructions/Restrictions: Drink plenty of fluids. Take tylenol for pain or fever. Take the medications as directed. Follow up with your regular doctor within the next 48 hours. GO TO THE ER FOR ANY WORSENING SYMPTOMS Return JUSTIN if your symptom continue or worsen. Clinical Impressions Clinical Impression: Otitis media Instructions Patient Instructions: Middle Ear Infection Discharge ED Provider: Remigio French [facility] General Stated complaint: SOA, Light-headed Time Seen by Provider: 12/05/23 19:30 History of Present Illness Provider Complaint: She states that since earlier today she has had intermittent dizziness, lightheadedness, right ear pain. Her symptoms have caused her to have anxiety. She denies any chest pain. She does say that she has had some chest tightness at times. Related Data Home Medications Medication Instructions Recorded Confirmed lisinopril 10 mg tablet 10 mg PO DAILY . 01/18/20 11/18/22 dicyclomine 10 mg capsule 10 mg PO ONCE . 06/19/22 11/18/22 omeprazole 40 mg capsule,delayed 40 mg PO DAILY . 06/19/22 11/18/22 release Previous Rx's Medication Instructions Recorded azithromycin 250 mg tablet 250 mg PO UD DOSE PK #6 tabs 02/01/23 (Zithromax) silidirvedwzuld-sdglrpmqwdknrvv-MU 5 ml PO Q6H PRN Cough #240 mL 02/01/23 2 mg-30 mg-10 mg/5 mL oral syrup (Bromfed DM) methylprednisolone 4 mg tablets in 4 mg PO DIRECTED #21 tabs 02/01/23 a dose pack norethindrone acetate 1 mg-ethinyl See Rx Instructions .Route 12/01/23 estradiol 20 mcg tablet .COMPLEX #63 tabs (Microgestin) amoxicillin 500 mg tablet 500 mg PO TID 10 days #30 tabs 12/05/23 Allergies Allergy/AdvReac Type Severity Reaction Status Date / Time codeine [CODEINE] Allergy Mild NA-NAUSEA/V Verified 11/18/22 11:29 OMITING PFSH PFSH Disclaimer: The information contained in this section may have been updated after the patient was seen, as this information can be updated by other users. Medical History delivery delivered History of deviated nasal septum Surgical History History of cholecystectomy History of placement of ear tubes History of tonsillectomy and adenoidectomy Social History Smoking Status: Current every day smoker tobacco type: cigarettes packs per day: 1 alcohol intake: never substance use type: denies use current occupational status: employed Travel in the last 8 weeks: None household members: spouse and children housing: house current occupational exposures/hazards: No caffeine: Yes ROS Obtained: Yes All systems reviewed & no additional complaints except as documented Constitutional Constitutional: Denies chills and Denies fever(s) Eyes Eyes: Denies eye discharge ENT Ears, Nose, Mouth, and Throat: Reports as per HPI, Reports dizziness, Reports otalgia and Denies sore throat Cardiovascular Cardiovascular: Denies chest pain Respiratory Respiratory: Denies shortness of breath, Denies chest congestion, Denies cough, Denies stridor and Denies wheezing Gastrointestinal Gastrointestingal: Denies nausea or vomiting Musculoskeletal Musculoskeletal: Reports system reviewed and no additional complaints, except as documented and Denies arthralgias Integumentary/Breasts Skin/Breast: Denies rash Neurologic Neurologic: Reports dizziness and Denies paresthesias Allergic/Immunologic Allergic/Immunologic: Denies wheezing Physical Exam General General appearance: alert and in no apparent distress Head Head exam: atraumatic, normocephalic and normal inspection Eye Eye exam: Present normal appearance, PERRL and EOMI ENT ENT exam: Present normal exam, normal oropharynx, mucous membranes moist, TM's normal bilaterally and normal external ear exam Neck Neck exam: Present normal inspection, full ROM and trachea midline; Absent meningismus or lymphadenopathy Chest Chest inspection: Present normal inspection and symmetric chest wall rise; Absent tenderness Respiratory Respiratory exam: Present normal lung sounds bilaterally; Absent respiratory distress Cardiovascular Cardiovascular exam: Present regular rate and normal rhythm; Absent JVD Abdominal Exam Abdominal exam: Present soft and normal bowel sounds; Absent distention, tenderness or guarding Extremities Exam Extremities exam: Present normal inspection, full ROM and normal capillary refill; Absent calf tenderness Back Exam Back exam: Present normal inspection; Absent tenderness Neurological Exam Neurological exam: Present alert, oriented X3, CN II-XII intact, normal gait and reflexes normal; Absent motor sensory deficit Expanded Neurological Exam Patient oriented to: Present person, place and time Speech: Present fluid speech Cranial nerves: Normal: EOM function (II, III, IV, ), facial sensation (V), facial palsy (VII), gag reflex (IX), spinal accessory function (XI) and tongue deviation (XII) Cerebellar function: normal gait Motor strength - LUE: 5/5 Motor strength - RUE: 5/5 Motor strength - LLE: 5/5 Motor strength - RLE: 5/5 Upper motor neuron exam: Normal: eloina neglect and sensory extinction Sensory exam upper extremity: Normal: light touch and 2 point discrimination Sensory exam lower extremity: Normal: light touch and 2 point discrimination DTR: 2+: biceps (L), biceps (R), patellar (L), patellar (R), Achilles tendon (L) and Achilles tendon (R) Spinal cord function: Absent saddle anesthesia Psychiatric Psychiatric exam: Present normal affect and normal mood Skin Skin exam: Present warm, dry, intact and normal color Lymphatic Lymphatic Findings: no adenopathy Medical Decision Making Medical Records Medical records reviewed: No I reviewed the patient's medical records. Jh Inquiry Pt receiving controlled substance: No Lab Data Lab results reviewed: Yes I reviewed the patient's lab results. 12/05/23 20:11 12/05/23 20:11 Radiology Data #1: Image(s): Chest Preliminary Findings: Normal/NAD and No Infiltrates Seen Accession No. : [id number] Patient Name / ID : Charleen Rene / [id number] Exam Date : 12/05/2023 19:48:09 ( Final ) Study Comment : Sex / Age : F / 33Y Creator : STEFANY CANTU MD Dictator : Shredding Machine Operator : Cloth Baler : STEFANY CANTU MD Approver2 : Report Date : 12/05/2023 21:17:40 My Comment : PROCEDURE INFORMATION: Exam: XR Chest Exam date and time: 12/05/2023 7:48 PM Age: 33 years old Clinical indication: Cough; Additional info: Cough, congestion TECHNIQUE: Imaging protocol: Radiologic exam of the chest. Views: 2 views. COMPARISON: CR XR CHEST PORTABLE 01/11/2022 1:27 PM FINDINGS: Lungs: No evidence of acute pulmonary disease or infiltrates Pleural spaces: No large effusion or pneumothorax. Heart/Mediastinum: No evidence of mediastinal widening or cardiac silhouette enlargement; the mediastinum and heart appear within normal limits for contour and size. Bones/joints: No evidence of acute osseous abnormalities within the visualized portions of the thoracic spine and ribs. Osseous structures appear appropriate for patient age. IMPRESSION: No dense parenchymal consolidation, pleural effusion, or pneumothorax.
--- NOTE | 2023-12-05 19:46 | ECG_ITS ---
APPROVED REPORT Exam: Resting ECG HR:91 bpm ECG Measurements Heart Rate 91 AXES OR 159 P 47 QRSd 88 QRS 72 QT 351 T 60 QTc 400 Conclusion SINUS RHYTHM Electronically signed by : NARCISA ARROYO, 12/07/2023 15:01:50
--- NOTE | 2023-12-05 19:48 | XR_ITS ---
PROCEDURE INFORMATION: Exam: XR Chest Exam date and time: 12/05/2023 7:48 PM Age: 33 years old Clinical indication: Cough; Additional info: Cough, congestion TECHNIQUE: Imaging protocol: Radiologic exam of the chest. Views: 2 views. COMPARISON: CR XR CHEST PORTABLE 01/11/2022 1:27 PM FINDINGS: Lungs: No evidence of acute pulmonary disease or infiltrates Pleural spaces: No large effusion or pneumothorax. Heart/Mediastinum: No evidence of mediastinal widening or cardiac silhouette enlargement; the mediastinum and heart appear within normal limits for contour and size. Bones/joints: No evidence of acute osseous abnormalities within the visualized portions of the thoracic spine and ribs. Osseous structures appear appropriate for patient age. IMPRESSION: No dense parenchymal consolidation, pleural effusion, or pneumothorax.
[2023-12-05 19:51] VITALS: BP 151/72; BP 155/78; BP 163/90; PULSE 100; PULSE 107; PULSE 99
[2023-12-05 20:10] LABS: Apearance,Urine Clear (Clear); Bilirubin,Urine Negative (Negative); Blood, Urine Negative (Negative); Color,Urine Yellow (Yellow); Glucose,Urine (UA) Negative (Negative); Ketones,Urine Negative (Negative); Protein,Urine Negative (Negative); UTC Leukocyte Esterase,Urine Negative (Negative); UTC Nitrate,Urine Negative (Negative); Urobilinogen,Urine 0.2 EU/dl (0.2)
[2023-12-05 20:11] LABS: UTC Pregnancy Test, Urine Negative (Negative)
[2023-12-05 20:32] LABS: Basophils # 0.1 K/mm3 (0-0.2); Basophils % 0.8 % (0.1-2.0); Eosinophils # 0.1 K/mm3 (0.0-0.4); Eosinophils % 1.3 % (0.1-12.0); Hematocrit 39.8 % (37.0-47.0); Hemoglobin 12.9 g/dL (12.2-16.2); Lymphocytes # 2.4 K/mm3 (0.7-4.5); Lymphocytes % 24.5 % (10-50); Mean Corpuscular HGB Conc 32.5 g/dL (31.8-35.4); Mean Corpuscular Hemoglobin 28.4 pg (27.0-31.2); Mean Corpuscular Volume 87.3 fl (81-99); Mean Platelet Volume 7.6 fl (7.4-10.4); Monocytes # 0.4 K/mm3 (0.1-1.0); Monocytes % 4.5 % (1.7-9.3); Neutrophils # 6.6 K/mm3 (1.8-7.8); Neutrophils % 68.9 % (37.0-80.0); Platelet Count 391 K/mm3 (142-424); Red Blood Count 4.56 M/mm3 (4.20-5.40); White Blood Count 9.6 K/mm3 (4.8-10.8)
[2023-12-05 20:43] LABS: Chloride 105 mmol/L (98-107); Potassium 3.6 mmoL/L (3.5-5.1); Sodium 140 mmol/L (136-145)
[2023-12-05 20:46] LABS: Anion Gap 13.6 mEq/L (5-15); Blood Urea Nitrogen 6 mg/dl (7-17); Carbon Dioxide 25 mmol/L (22.0-30.0); Creatinine Clearance Estimated 97 mL/min (50-200); Estimated Glomerular Filt Rate 116 ml/min (>60); GFR (African American) 140 ML/MIN (>60)
[2023-12-05 20:47] LABS: Calcium 9.4 mg/dl (8.4-10.2); Glucose 107 mg/dl (74-100)
[2023-12-05 20:56] VITALS: BP 161/90; PULSE 115; RESP 18; TEMP 36.6; O2SAT 97
== END 2023-12-05 20:56 | disposition home or self-care (01) ==
PROVIDERS: Emergency Provider Nurse Practitioner Family; PCP Family Medicine
DX: H66.91 Otitis media, unspecified, right ear (principal); R07.89 Other chest pain; R42 Dizziness and giddiness; F17.210 Nicotine dependence, cigarettes, uncomplicated
CPT/HCPCS: 71046; 80048; 81003; 81025; 85025; 93005; 99212; 99214; G0463

== ENCOUNTER 2024-04-29 08:34 | Outpatient (CLI) | payer OTHER, SELFPAY ==
[2024-04-29 09:00] LABS: Basophils # 0.1 K/mm3 (0-0.2); Basophils % 0.8 % (0.1-2.0); Eosinophils # 0.1 K/mm3 (0.0-0.4); Eosinophils % 1.6 % (0.1-12.0); Hematocrit 38.1 % (37.0-47.0); Hemoglobin 12.9 g/dL (12.2-16.2); Lymphocytes # 1.5 K/mm3 (0.7-4.5); Mean Corpuscular HGB Conc 33.8 g/dL (31.8-35.4); Mean Corpuscular Hemoglobin 28.9 pg (27.0-31.2); Mean Corpuscular Volume 85.6 fl (81-99); Mean Platelet Volume 7.1 fl (7.4-10.4); Monocytes # 0.3 K/mm3 (0.1-1.0); Monocytes % 4.2 % (1.7-9.3); Neutrophils # 5.3 K/mm3 (1.8-7.8); Neutrophils % 73.4 % (37.0-80.0); Platelet Count 333 K/mm3 (142-424); Red Blood Count 4.45 M/mm3 (4.20-5.40); Red Cell Distribution Width 13.7 % (11.5-17.5); White Blood Count 7.2 K/mm3 (4.8-10.8)
[2024-04-29 09:33] LABS: Alanine Aminotransferase 18 U/L (12-78); Albumin/Globulin Ratio 1.4 (1.1-1.8); Alkaline Phosphatase 81 U/L (38-126); Anion Gap 13.4 mEq/L (5-15); Aspartate Amino Transferase 18 U/L (14-36); Bilirubin,Total 0.6 mg/dl (0.2-1.3); Blood Urea Nitrogen 9 mg/dl (7-17); Carbon Dioxide 22 mmol/L (22.0-30.0); Chloride 107 mmol/L (98-107); Chol/HDL Ratio 4.1 (1-3.5); Cholesterol 162 mg/dl (140-200); Estimated Glomerular Filt Rate 96 ml/min (>60); GFR (African American) 117 ML/MIN (>60); Globulin 2.8 g/dL (1.3-3.2); Glucose 93 mg/dl (74-100); HDL Cholesterol 40 mg/dl (40-60); Magnesium 2.1 mg/dl (1.6-2.3); Potassium 4.4 mmoL/L (3.5-5.1); Sodium 138 mmol/L (136-145); Total Protein,Serum 6.8 g/dl (6.3-8.2); Triglycerides 118 mg/dl (30-150); Uric Acid 5.5 mg/dl (2.5-6.2); VLDL Cholesterol 24 mg/dL (0-40)
[2024-04-29 09:44] LABS: C-Reactive Protein 36.6 mg/L (0-4); Direct LDL Cholesterol 115.63 mg/dL (100-129)
[2024-04-29 10:04] LABS: Thyroid Stimulating Hormone 1.73 uIU/mL (0.465-4.68)
[2024-04-29 10:23] LABS: Vitamin B12 216 pg/mL (239-931)
[2024-04-29 10:24] LABS: Erythrocyte Sedimentation Rate 86 mm/hr (0-20)
[2024-04-29 10:46] LABS: Iron 64 ug/dL (37-170)
[2024-04-29 10:55] LABS: Total Iron Binding Capacity 414 ug/dL (265-497)
[2024-04-29 11:22] LABS: Ferritin 89.3 ng/ml (6.24-137)
[2024-04-29 11:44] LABS: Hemoglobin A1C 5.3 % (4.0-6.0)
[2024-04-29 16:21] LABS: HIV (1&2) Antibody Rapid NONREACTIVE (NONREACTIVE)
[2024-04-30 07:14] LABS: HCV Ab Non Reactive (Non Reactive)
[2024-04-30 08:18] LABS: Testosterone,Total 55 ng/dL (8-60)
[2024-05-01 12:19] LABS: Insulin Level Total 48.8 uIU/mL (2.6-24.9)
[2024-05-01 14:37] LABS: Folate, RBC 859 ng/mL (>498); Hematocrit 37.5 % (34.0-46.6)
[2024-05-04 22:28] LABS: Vitamin B6 3.5 ug/L (3.4-65.2)
[2024-05-06 10:10] LABS: Vitamin B1 130.7 nmol/L (66.5-200.0)
[2024-05-15 02:39] LABS: 1,25 Dihydroxy Vitamin D 85 pg/mL (.); 1,25-Dihydroxy, Vitamin D-2 <10 pg/mL (.); 1,25-Dihydroxy, Vitamin D-3 84 pg/mL (.)
== END 2024-04-29 23:59 | disposition home or self-care (01) ==
LOC: LAB 08:36
PROVIDERS: PCP Psychiatry & Neurology Sleep Medicine; Referring Provider Physician Assistant; Visit Provider Obstetrics & Gynecology
DX: L68.0 Hirsutism (principal); R63.5 Abnormal weight gain; R68.82 Decreased libido; Z01.419 Encounter for gynecological examination (general) (routine) without abnormal findings
CPT/HCPCS: 36415; 80050; 80053; 80061; 82607; 82652; 82728; 82747; 83036; 83525; 83540; 83550; 83735; 84207; 84403; 84425; 84443; 84550; 85014; 85025; 85651; 86140; 86803; 87389

== ENCOUNTER 2024-10-25 09:29 | Outpatient (CLI) | payer OTHER, SELFPAY ==
--- NOTE | 2024-10-25 09:30 | US_ITS ---
PROCEDURE: US TRANSVAGINAL CLINICAL INDICATION: AUB COMPARISON: No exams were available for comparison FINDINGS: Transvaginal sonographic images of the pelvis were obtained. UTERUS: 7.4cm x 4.1cmx 3.1cm anteverted with a combined endometrial thickness of 2.3mm. There is a small amount of fluid in the cervix which may be either blood or mucus. There are a few small calcifications adjacent to the endometrium that may be adenomyosis. LEFT OVARY: 1.4cmx1.7 cm x2.1cm with a volume of 2.5ml. There is a small 0.63 cm collapsing follicle in the left ovary that is likely a corpus luteum. RIGHT OVARY: 2.4cmx 2.5cmx1.6 cm with a volume of 5.1ml. Both ovaries are seen and appear normal. Doppler flow to both ovaries are seen. There is no fluid in the cul-de-sac. IMPRESSION: 1. Anteverted uterus normal in shape and size. The endometrium is thin. There are a few small calcifications adjacent to the endometrium that may represent adenomyosis. 2. Both ovaries are seen and appear normal. There appears to be a corpus luteum in the left ovary. Both ovaries are small and appear atrophic. 3. No fluid in the cul-de-sac Dictated by: Dakotah Guzman MD 10/25/2024 10:35 Dakotah Guzman MD in OV 10/25/2024 10:35
--- OUTSIDE RECORDS SUMMARY | 2024-10-25 09:31 | XMS_ITS | Data Portability ---
Author Organization [facility] [place] [facility] [place] Minor ADMIN Address [address] [place] [address] Care Team Providers Care Orderlies Teacher Name Role Phone MATTHEW PLATA Primary Care Provider Assessment Encounter Date Assessment Date Assessment LastModified by Organization Details LastModified Time 04/21/2023 04/21/2023 33-year-old yariel escalante with: 1) Chronic diarrhea: present following cholecystectomy 10 years ago. Previously improved with use of Welchol, but taste not tolerated by patient. -Will start Colestipol 2 g p.o. BID. She may also continue dicyclomine prn. -EGD and colonoscopy scheduled. 2) Abdominal pain: EGD and colonoscopy scheduled for further evaluation. She notes some prior relief with PPI, but has been non-adherent. -Continue Dicyclomine. -We have discussed a low-fodmap diet in the office today. Recommended she monitor for potentially triggering foods. She plans to research this a bit more. [email or web address] Not available 04/21/2023 15:05:42 07/21/2023 07/21/2023 33-year-old yariel escalante with: 1) Chronic diarrhea: present following cholecystectomy 10 years ago. Previously improved with use of Colestipol 2 g p.o. BID, but Patient stopped medication while taking her antibiotics for H pylori. -The patient wishes to undergo further workup for her diarrhea to ensure there is no infection or allergy present. She is worried her H pylori infection could have returned or other underlying etiology. Will order diarrhea lab workup per below -EGD and colonoscopy unremarkable 05/19/23 -Restart colestipol 2g p.o. b.i.d. The patient states she does not need refills. -Restart dicyclomine as needed for abdominal pain. The patient states she has not need refills 2) Abdominal pain: EGD and colonoscopy unremarkable 05/19/23. She notes some prior relief with PPI, but has been non-adherent. -Continue Dicyclomine. -We have discussed a low-fodmap diet in the office today. Recommended she monitor for potentially triggering foods. She plans to research this a bit more. 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 -Continue treatment of strongyloides with ivermectin per infectious disease -EGD and colonoscopy unremarkable 05/19/23 2) Abdominal pain: EGD and colonoscopy unremarkable 05/19/23. She notes some prior relief with PPI, but has been non-adherent. -Continue Dicyclomine. -We have discussed a low-fodmap diet in the office today. Recommended she monitor for potentially triggering foods. She plans to research this a bit more. 3) Colorectal cancer screening -Repeat screening colonoscopy recommended at age 46 for colorectal cancer screening purposes Follow up as needed [email or web address] Not available 09/14/2023 12:31:48 Plan of Treatment Reminders Order Date Submit Date Provider Last Modified By Organization Details Last Modified Time Details Appointments None recorded. Lab gastrointes tinal pathogens DNA + RNA panel, PRATEEK+non-pro be, stool 2023 024 TIFFANIE [facility], [address], [address], [place], [address], 4 16:13:13 Strongyloid es sp Ab, QL, serum 2023 024 TIFFANIE [facility], [address], [address], [place], [address], 4 16:13:17 unlisted lab - ova and parasite exam, fecal 2023 024 NORA [facility], [address], [address], [place], [address], 4 16:13:15 pancreatic elastase, quant, stool 2023 024 NORA [facility], [address], [address], [place], [address], 4 16:13:19 fat panel, stool 2023 024 NORA [facility], [address], [address], [place], [address], 4 16:13:16 TSH, ultra-sensi tive, serum 2023 024 NORA [facility], [address], [address], [place], [address], 4 16:13:18 H pylori Ag, qual immunoassay , stool 2023 024 [facility], [address], [address], [place], [address], 4 16:13:20 Referral None recorded. Procedures None recorded. Surgeries None recorded. Imaging None recorded. Medication Orders ivermectin 3 mg tablet 2023 024 [facility], [address], [address], 4 11:41:40 colestipol 1 gram tablet 2022 023 [facility], [address], [address], 3 15:02:40 Patient TargetsNo targets recorded. Patient InstructionsNo instructions recorded. Reason for Referral None Reported. Results Created Date Observation Date Name Description Value Unit Range Abnormal Flag Note LastModifiedBy Organization Detail LastModifiedTime 07/21/19 24 07/22/2023 GI PROFI LE, STOOL , PCR campylobacte r TNP Test not perfo rmed. No stool speci men recei sabas. Not Available [facility] ([facility]) [address] [place], [address], 07/23/2023 16:13:13 07/21/19 24 07/22/2023 GI PROFI LE, STOOL , PCR C difficile toxin A/B TNP Test not perfo rmed Not Available [facility] ([facility]) [address] [place], [address], 07/23/2023 16:13:13 07/21/19 24 07/22/2023 GI PROFI LE, STOOL , PCR plesiomonas shigelloides TNP Test not perfo rmed Not Available [facility] ([facility]) [address] [place], [address], 07/23/2023 16:13:13 07/21/19 24 07/22/2023 GI PROFI LE, STOOL , PCR salmonella TNP Test not perfo rmed Not Available [facility] ([facility]) [address] [place], [address], 07/23/2023 16:13:13 07/21/19 24 07/22/2023 GI PROFI LE, STOOL , PCR vibrio TNP Test not perfo rmed Not Available [facility] ([facility]) [address] [place], [address], 07/23/2023 16:13:13 07/21/19 24 07/22/2023 GI PROFI LE, STOOL , PCR vibrio cholerae TNP Test not perfo rmed Not Available [facility] ([facility]) [address] [place], [address], 07/23/2023 16:13:13 07/21/19 24 07/22/2023 GI PROFI LE, STOOL , PCR yersinia enterocoliti ca TNP Test not perfo rmed Not Available [facility] ([facility]) [address] [place], [address], 07/23/2023 16:13:13 07/21/19 24 07/22/2023 GI PROFI LE, STOOL , PCR enteroaggreg ative E coli TNP Test not perfo rmed Not Available [facility] ([facility]) [address] [place], [address], 07/23/2023 16:13:13 07/21/19 24 07/22/2023 GI PROFI LE, STOOL , PCR enteropathog enic E coli TNP Test not perfo rmed Not Available [facility] ([facility]) [address] [place], [address], 07/23/2023 16:13:13 07/21/19 24 07/22/2023 GI PROFI LE, STOOL , PCR enterotoxige thomas E coli TNP Test not perfo rmed Not Available [facility] ([facility]) [address] [place], [address], 07/23/2023 16:13:13 07/21/19 24 07/22/2023 GI PROFI LE, STOOL , PCR shiga-toxin- producing E coli TNP Test not perfo rmed Not Available [facility] ([facility]) [address] [place], [address], 07/23/2023 16:13:13 07/21/19 24 07/22/2023 GI PROFI LE, STOOL , PCR E coli O157 TNP Test not perfo rmed Not Available [facility] ([facility]) [address] [place], [address], 07/23/2023 16:13:13 07/21/19 24 07/22/2023 GI PROFI LE, STOOL , PCR shigella/ent eroinvasive E coli TNP Test not perfo rmed Not Available [facility] ([facility]) [address] [place], [address], 07/23/2023 16:13:13 07/21/19 24 07/22/2023 GI PROFI LE, STOOL , PCR cryptosporid ium TNP Test not perfo rmed Not Available [facility] ([facility]) [address] [place], [address], 07/23/2023 16:13:13 07/21/19 24 07/22/2023 GI PROFI LE, STOOL , PCR cyclospora cayetanensis TNP Test not perfo rmed Not Available [facility] ([facility]) [address] [place], [address], 07/23/2023 16:13:13 07/21/19 24 07/22/2023 GI PROFI LE, STOOL , PCR entamoeba histolytica TNP Test not perfo rmed Not Available [facility] ([facility]) [address] [place], [address], 07/23/2023 16:13:13 07/21/19 24 07/22/2023 GI PROFI LE, STOOL , PCR giardia lamblia TNP Test not perfo rmed Not Available [facility] ([facility]) [address] [place], [address], 07/23/2023 16:13:13 07/21/19 24 07/22/2023 GI PROFI LE, STOOL , PCR adenovirus F 40/41 TNP Test not perfo rmed Not Available [facility] ([facility]) [address] [place], [address], 07/23/2023 16:13:13 07/21/19 24 07/22/2023 GI PROFI LE, STOOL , PCR astrovirus TNP Test not perfo rmed Not Available [facility] ([facility]) [address] [place], [address], 07/23/2023 16:13:13 07/21/19 24 07/22/2023 GI PROFI LE, STOOL , PCR norovirus GI/gii TNP Test not perfo rmed Not Available [facility] ([facility]) [address] [place], [address], 07/23/2023 16:13:13 07/21/19 24 07/22/2023 GI PROFI LE, STOOL , PCR rotavirus A TNP Test not perfo rmed Not Available [facility] ([facility]) [address] [place], [address], 07/23/2023 16:13:13 07/21/19 24 07/22/2023 GI PROFI LE, STOOL , PCR sapovirus TNP Test not perfo rmed Not Available [facility] ([facility]) [address] [place], [address], 07/23/2023 16:13:13 07/21/19 24 07/22/2023 OVA AND DIMA ITE EXAM, FECAL interpretati on TNP Test not perfo rmed. No stool speci men recei sabas. Not Available [facility] ([facility]) [address] [place] [address], [address], 07/23/2023 16:13:15 07/21/19 24 07/22/2023 FECAL FAT, QUALI TATIV E fats, neutral TNP Test not perfo rmed. No stool speci men recei sabas. Heather l (<60 Dropl ets/H PF) Not Available [facility] ([facility]) [address] [place], [address], 07/23/2023 16:13:16 07/21/19 24 07/22/2023 FECAL FAT, QUALI TATIV E fats, total TNP Test not perfo rmed Not Available [facility] ([facility]) [address] [place], [address], 07/23/2023 16:13:16 07/21/19 24 07/23/2023 STRON GYLOI BAILEE IGG ANTIB OLGA strongyloide s IgG antibody POSITI VE negati ve abnormal Not Available [facility] ([facility]) [address] [facility], [place], [address], 07/23/2023 16:13:17 07/21/19 24 07/22/2023 TSH RFX ON ABNOR MAL TO FREE T4 TSH 1.100 uIU/m L 0.450- 4.500 Not Available [facility] ([facility]) [address] [facility], [place], [address], 07/23/2023 16:13:18 07/21/19 24 07/22/2023 PANCR EATIC ELAST ASE, FECAL pancreatic elastase, fecal TNP ug_el ast./ g Test not perfo rmed. No stool speci men recei sabas. Sever e Pancr eatic Insuf ficie ncy: <100 Moder ate Pancr eatic Insuf ficie ncy: 100 - 200 Heather l: >200 Not Available [facility] ([facility]) [address] [facility], [place], [address], 07/23/2023 16:13:19 07/21/19 24 07/22/2023 H. PYLOR I STOOL AG, EIA H. pylori stool Ag, EIA TNP Test not perfo rmed. No stool speci men recei sabas. Not Available [facility] ([facility]) [address] [place], [address], 07/23/2023 16:13:20 07/21/19 24 07/22/2023 SPECI MEN STATU S REPOR T specimen status report TNP Test not perfo rmed. No stool speci men recei sabas. TEST: [id number] 0 GI Profi le, Stool , PCR 10604 2 Ova and Dima ite Exam, Fecal 11516 7 Fecal Fat, Quali tativ e 46860 4 Pancr eatic Elast ase, Fecal 28871 4 H. pylor i Stool Ag, EIA Not Available [facility] ([facility]) [address] [facility], [place], [address], 07/23/2023 16:13:21 Result Notes None recorded. 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 Procedures Surgical History Date Name Laterality Status Provider Name and Address Organization Details Recorded Time cholecystectomy completed Angie Rigoberto [facility] & [place] 04/21/2023 14:13:19 Imaging Results None recorded. Procedure Notes None recorded. Medical Equipment None Reported. Allergies Allergen ID Allergen Name Allergen Category Reaction Reaction Severity Criticality Documentation Date Start Date Code Code System Note Provider Name and Address Organization Details Recorded Time 409146 codeine medicatio n vomiting Not available Not available 05/28/2023 1060 RxNorm DEANN HIGHTOWER MSN, ELASTIC ATTACHER CHAINSTITCH, STEAM DRIER OPERATOR-C [address] [facility], [place], [address], [facility] & [place] 3 16:16:30 Medications Name Sig Start Date Stop Date Status Note LastModified by Organization Details LastModified Time Miralax 17 gram oral powder packet Take 5 packets 3 times a day by oral route as directed for 1 day. 2022 active Not Available Not Available Not Avai lable ivermectin 3 mg tablet TAKE 6 TABLETS BY MOUTH ONCE DAILY FOR 1 DAY active Not Available Not Available No t Available azithromycin 250 mg tablet TAKE 2 TABLETS BY MOUTH ON DAY 1, AND THEN TAKE 1 TABLET BY MOUTH ONCE A DAY ON DAY 2 THROUGH DAY 5 active Not Available Not Available No t Available fluconazole 150 mg tablet TAKE 1 TABLET BY MOUTH A ONE TIME DOSE active Not Available Not Available No t Available spironolactone 100 mg tablet TAKE 1 TABLET BY MOUTH ONCE DAILY active Not Available Not Available No t Available metronidazole 250 mg tablet TAKE 1 TABLET BY MOUTH EVERY 6 HOURS FOR 14 DAYS active Not Available Not Available No t Available methylpredniso lone 4 mg tablet TAKE 1 TABLET BY MOUTH TWICE DAILY active Not Available Not Available No t Available ciprofloxacin 500 mg tablet TAKE 1 TABLET BY MOUTH EVERY 12 HOURS active Not Available Not Available No t Available omeprazole 40 mg capsule,delaye d release TAKE 1 CAPSULE BY MOUTH ONCE DAILY active Not Available Not Available No t Available doxycycline monohydrate 100 mg capsule TAKE 1 CAPSULE BY MOUTH TWICE DAILY FOR 14 DAYS active Not Available Not Available No t Available pantoprazole 40 mg tablet,delayed release TAKE 1 TABLET BY MOUTH TWICE DAILY FOR 14 DAYS active Not Available Not Available No t Available lisinopril 10 mg tablet TAKE 1 TABLET BY MOUTH ONCE DAILY active Not Available Not Available No t Available bismuth subsalicylate 262 mg chewable tablet Take 1 tablet every 6 hours by oral route for 14 days. 2022 active Not Available Not Available Not Avai lable methylpredniso lone 4 mg tablets in a dose pack TAKE BY MOUTH DIRECTED ON INSIDE OF PACKAGE active Not Available Not Available No t Available brompheniramin e-pseudoephedr ine-DM 2 mg-30 mg-10 mg/5 mL oral syrup TAKE 5 ML BY MOUTH EVERY 6 HOURS NEEDED FOR COUGH active Not Available Not Available No t Available cefdinir 300 mg capsule TAKE 1 CAPSULE BY MOUTH TWICE DAILY FOR 10 DAYS active Not Available Not Available No t Available colestipol 1 gram tablet TAKE 2 TABLETS BY MOUTH TWICE DAILY active Not Available Not Available No t Available dicyclomine 10 mg capsule TAKE 1 CAPSULE BY MOUTH TWICE DAILY active Not Available Not Available No t Available Microgestin 1/20 (21) 1 mg-20 mcg tablet TAKE 1 TABLET BY MOUTH ONCE DAILY active Not Available Not Available No t Available Lo Loestrin Fe 1 mg-10 mcg (24)/10 mcg (2) tablet TAKE 1 TABLET BY MOUTH ONCE DAILY active Not Available Not Available No t Available Vitals Date Recorded Body weight Body mass index (BMI) Body height Body temperature Oxygen saturation Oxygen saturation in Arterial blood by Pulse oximetry Heart rate Heart rate Systolic blood pressure Diastolic blood pressure Provider Name and Address Organization Details Last Updated DateTime 3 59699.4 4 g 42 kg/m2 152.4 cm 98.2 [degF] 98 % 98 % 97 /min 96 /min 127 mm[Hg] 90 mm[Hg] Angie Oneilldwell [facility] & [place] 3 14:13:51 Date Recorded Body height Body mass index (BMI) Body weight Body temperature Oxygen saturation Oxygen saturation in Arterial blood by Pulse oximetry Heart rate Heart rate Systolic blood pressure Diastolic blood pressure Provider Name and Address Organization Details Last Updated DateTime 4 152.4 cm 42.3 kg/m2 88486.3 9 g 98.1 [degF] 99 % 99 % 106 /min 103 /min 132 mm[Hg] 84 mm[Hg] Maryamnanci Cerda [facility] & [place] 4 14:37:54 Date Recorded Body height Heart rate Oxygen saturation Oxygen saturation in Arterial blood by Pulse oximetry Body temperature Body mass index (BMI) Body weight Systolic blood pressure Diastolic blood pressure Provider Name and Address Organization Details Last Updated DateTime 4 152.4 cm 65 /min 100 % 100 % 100.2 [degF] 42.1 kg/m2 02549.5 1 g 144 mm[Hg] 98 mm[Hg] Jodieartie Conrad [facility] & [place] 4 11:17:18 Date Recorded Body height Body mass index (BMI) Body weight Body temperature Heart rate Heart rate Oxygen saturation Oxygen saturation in Arterial blood by Pulse oximetry Systolic blood pressure Diastolic blood pressure Provider Name and Address Organization Details Last Updated DateTime 4 152.4 cm 42.5 kg/m2 49356.3 4 g 97.9 [degF] 98 /min 96 /min 99 % 99 % 156 mm[Hg] 98 mm[Hg] Angie Oneilldwell [facility] & [place] 4 11:40:49 Social History None recorded. Functional Status None recorded. Mental Status None recorded. Family History Relationship Description Onset Age of this Age Resolved Age Notes LastModified by Organization Details LastModified Time Maternal Grandmother Chronic obstructive pulmonary disease pt. added direct ly (04/18) [email or web address] Not available 04/18/2023 12:28:41 Maternal Grandmother Disorder of endocrine system pt. added direct ly (04/18) [email or web address] Not available 04/18/2023 12:28:58 Maternal Grandmother Hypertensive disorder pt. added direct ly (04/18) [email or web address] Not available 04/18/2023 12:30:28 Father Gastroesopha geal reflux disease pt. added direct ly (04/18) [email or web address] Not available 04/18/2023 12:29:25 Father Hypertensive disorder pt. added direct ly (04/18) [email or web address] Not available 04/18/2023 12:30:28 Paternal Grandfather Myocardial infarction pt. added direct ly (04/18) [email or web address] Not available 04/18/2023 12:29:48 Mother Hypercholest erolemia pt. added direct ly (04/18) [email or web address] Not available 04/18/2023 12:30:04 Mother Hypertensive disorder pt. added direct ly (04/18) [email or web address] Not available 04/18/2023 12:30:28 Paternal Grandmother Hypertensive disorder pt. added direct ly (04/18) [email or web address] Not available 04/18/2023 12:30:28 Medical History No medical history recorded. Gynecological HistoryNo gynecological history recorded. Obstetrics History GPAL:G 0 P 0 0 0 0 Past Encounters Encounter ID Performer Location Encounter Start Date Encounter Closed Date Diagnosis/Indication Diagnosis SNOMED-CT Code Diagnosis ICD10 Code Diagnosis Note [id number] Gunner Lea PA-C [facility] [address] [address] 04/21/2023 13:43:45 04/21/2023 15:04:02 Abdominal pain 21000984 R10.9 Chronic diarrhea 3944330 09 K52.9 Bile acid malabsorption syndrome 56662906 E78.70 [id number] Chepe Be MD [facility] [address] [place] [address] 07/21/2023 13:47:37 07/21/2023 15:36:41 Abdominal pain 69626870 R10.9 Chronic diarrhea 3470786 09 K52.9 Bile acid malabsorption syndrome 20680881 E78.70 [id number] Justine Pickens in, [facility] [address] [facility] [address] [place] [address] 09/02/2023 10:34:21 09/02/2023 11:37:23 Infection by Strongyloides 1436436 B78.9 Counseled patient to take as directed. Medication dosed based on guidelines . Will see patient back in 2 weeks. [id number] Chepe Be MD [facility] [address] [place] [address] 09/14/2023 11:30:19 09/14/2023 12:04:25 Abdominal pain 10608185 R10.9 Chronic diarrhea 7095448 09 K52.9 Bile acid malabsorption syndrome 02557731 E78.70 Health Concerns Section Related Observation LastModified by Organization Detai ls LastModified Time None Recorded Concern Status LastModified by Organization Details LastModified Time None Recorded Advance Directives Directive None Recorded Payers Insurance Date Sequence Insurance Name Policy Number Policy Ch Covered Member ID Ch Member ID Guarantor Name 09/22/2023 1 [facility] [id number] Melissa Huber [place] [id number] Melissa Villaseñor Notes Date Note Type Note Provider Name and Address Organization Details Recorded Time 04/21/2023 text/html Ms. Villaseñor is a very pleasant 33-year-old female who was referred by Dr. Plata for evaluation of chronic diarrhea and abdominal pain. She reports symptoms have been present following cholecystectomy 10 years ago. She was on treatment with Welchol for a short period of time, which did help diarrhea, but she stopped due to taste eversion to the powder. She is currently taking Dicyclomine, which she finds helpful for fecal urgency, however she does feel it causes irregular BMs at times. She also complains of mid to upper abdominal burning after meals for the past 6 months. PPI helped this previously but she did not continued. She endorses poor adherence to medications overall with the exception of Bentyl. She denies hematemesis, melena, or hematochezia. She denies a family history of IBD, celiac disease, or gastrointestinal malignancy. Gunner Lea PA-C [address], [place], [address], [place] - [facility] [place] & [place] 04/21/2023 15:06:02 07/21/2023 text/html PREVIOUS ( Juan Lea): Ms. Villaseñor is a very pleasant 33-year-old female who was referred by Dr. Plata for evaluation of chronic diarrhea and abdominal pain. She reports symptoms have been present following cholecystectomy 10 years ago. She was on treatment with Welchol for a short period of time, which did help diarrhea, but she stopped due to taste eversion to the powder. She is currently taking Dicyclomine, which she finds helpful for fecal urgency, however she does feel it causes irregular BMs at times. She also complains of mid to upper abdominal burning after meals for the past 6 months. PPI helped this previously but she did not continued. She endorses poor adherence to medications overall with the exception of Bentyl. She denies hematemesis, melena, or hematochezia. She denies a family history of IBD, celiac disease, or gastrointestinal malignancy. CURRENT (07/21/23 Todd Hightower): Ms. Villaseñor presents to the clinic today for follow-up. She underwent EGD and colonoscopy with Dr. Be on 05/19/2023 for further evaluation of abdominal pain and diarrhea. Gastric biopsy was positive for H pylori. She was prescribed quadruple bismuth regimen for treatment on 05/28/2023. She reports starting this antibiotic regimen on . She took the bismuth tablets 3 times daily instead of, as she states she could not tolerate it. She took the medication for 14 days total. She reports the colestipol prescribed at her last office visit resolved her diarrhea. The dicyclomine that was prescribed was also helpful for her abdominal pain. However, she stopped taking these medications while taking her antibiotic treatment for H pylori, and has not restarted them since. She presents to the clinic today complaining of diarrhea and abdominal pain, similar to her last office visit. She reports 6 loose stools today. She denies hematemesis, hematochezia or melena. DEANN HIGHTOWER MSN, ELASTIC ATTACHER CHAINSTITCH, STEAM DRIER OPERATOR-C [address], [place], [address], [facility] & [place] 07/21/2023 16:54:07 09/02/2023 text/html patient is a 33 year old white female presenting for a positive strongyloides test. She has had chronic abdominal concerns with pain, diarrhea, and bloating. She was treated for H Pylori in May and finished treatment. Patient states her follow up stool was negative. She has a history of hypertension. She uses a vape pen regularly. Denies any ETOH use. Has a surgical history of cholecystectomy 10 years ago. Denies any hematochezia. Denies any SOB or chest pain. Denies any urinary symptoms. Justine Mackay, [facility] [address] , [place], [address], [facility] & [place] 09/02/2023 11:42:11 09/14/2023 text/html PREVIOUS ( Juan Lea): Ms. Villaseñor is a very pleasant 33-year-old female who was referred by Dr. Plata for evaluation of chronic diarrhea and abdominal pain. She reports symptoms have been present following cholecystectomy 10 years ago. She was on treatment with Welchol for a short period of time, which did help diarrhea, but she stopped due to taste eversion to the powder. She is currently taking Dicyclomine, which she finds helpful for fecal urgency, however she does feel it causes irregular BMs at times. She also complains of mid to upper abdominal burning after meals for the past 6 months. PPI helped this previously but she did not continued. She endorses poor adherence to medications overall with the exception of Bentyl. She denies hematemesis, melena, or hematochezia. She denies a family history of IBD, celiac disease, or gastrointestinal malignancy. PREVIOUS (07/21/23 Todd Hightower): Ms. Villaseñor presents to the clinic today for follow-up. She underwent EGD and colonoscopy with Dr. Be on 05/19/2023 for further evaluation of abdominal pain and diarrhea. Gastric biopsy was positive for H pylori. She was prescribed quadruple bismuth regimen for treatment on 05/28/2023. She reports starting this antibiotic regimen on [place]. She took the bismuth tablets 3 times daily instead of, as she states she could not tolerate it. She took the medication for 14 days total. She reports the colestipol prescribed at her last office visit resolved her diarrhea. The dicyclomine that was prescribed was also helpful for her abdominal pain. However, she stopped taking these medications while taking her antibiotic treatment for H pylori, and has not restarted them since. She presents to the clinic today complaining of diarrhea and abdominal pain, similar to her last office visit. She reports 6 loose stools today. She denies hematemesis, hematochezia or melena. CURRENT (09/14/23 Todd Hightower): Ms. Villaseñor presents to the clinic today for follow up. Lab work from last office visit revealed positive Strongyloides IgG antibody. She was referred to infectious disease for treatment. Previous stool tests ordered apparently resulted through [facility]. GI panel was negative. No other results noted on Patient's phone portal access. She is currently undergoing treatment with ivermectin per Infectious Disease. She reports her diarrhea has resolved. She does have occasional bloating but this is relieved with dyclomine use. She denies nausea, vomiting, hematemesis, hematochezia or melena. 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
== END 2024-10-25 23:59 | disposition home or self-care (01) ==
LOC: RAD 09:29
PROVIDERS: PCP Family Medicine; Visit Provider Obstetrics & Gynecology
DX: N83.311 Acquired atrophy of right ovary (principal); N83.312 Acquired atrophy of left ovary; N85.8 Other specified noninflammatory disorders of uterus; N93.9 Abnormal uterine and vaginal bleeding, unspecified
CPT/HCPCS: 76830